=== PATIENT | female | born 1975 | race Caucasian/White ===

== ENCOUNTER 2020-07-04 12:46 | Emergency (ER) | payer OTHER, BC ==
[2020-07-04] MEDS ORDERED: NAPROXEN500 MG PO (15:26)
[2020-07-04 16:28] VITALS: BP 118/75
== END 2020-07-04 16:32 | disposition home or self-care (01) | DRG 563 ==
LOC: ED 12:46
DX: S63.91XA Sprain of unspecified part of right wrist and hand, initial encounter (principal); S83.91XA Sprain of unspecified site of right knee, initial encounter; V48.5XXA Car driver injured in noncollision transport accident in traffic accident, initial encounter